=== PATIENT | male | born 1940 | race Caucasian/White ===

== ENCOUNTER → 2016-11-25 | Outpatient (CLI) | payer OTHER, BC ==
[~2016-11-25] MED LIST: ACET325T96 PO; CHOL100010 PO; LATA0.009 OPB; PSYL55.43 PO
[2016-12-01 10:17] LABS: ANTI-CENTROMERE AB <1.0 NEG AI (<1.0 NEG); ANTI-SS-A <1.0 NEG AI (<1.0 NEG); ANTI-SS-B <1.0 NEG AI (<1.0 NEG); DNA ds CRITHIDIA NEGATIVE (NEGATIVE); MICROSOMAL AB <1 IU/ML (<9); Sm Antibody <1.0 NEG AI (<1.0 NEG)
== END | disposition home or self-care (01) ==
LOC: C.LAB1850 15:02
PROVIDERS: ATTEND Internal Medicine Infectious Disease
DX: G62.9 Polyneuropathy, unspecified (principal)

== ENCOUNTER 2017-10-19 11:32 | Day surgery (SDC) | payer OTHER, BC ==
[2017-09-29 12:02] VITALS: BMI 25.0
[~2017-10-19] VITALS: Ht 185.4 cm; Wt 86.4 kg
[~2017-10-19 11:32] MED LIST changes: +ACET-1256 PO; -ACET325T96 PO; -CHOL100010 PO; +CIPROFLOXACIN / D5W 400 MG IV SCH; +CLC100X PO; +DOXY100C76 PO; +FLM4 PO; +IBUP-1459 PO; +LACTATED RINGER'S 1000ML 1,000 ML IV SCH; -LATA0.009 OPB; +PSYL48.59 PO; -PSYL55.43 PO; +TRAM-10 PO
[2017-10-19 12:13] VITALS: BP 146/67; PULSE 87; TEMP 36.6; O2SAT 97; BMI 25.0
[2017-10-19 12:23] VITALS: BP 146/67; TEMP 36.6; O2SAT 97; Ht 185.4 cm; Wt 86.4 kg
--- NOTE | 2017-10-19 12:25 | History & Physical Bridge Note ---
H&P Re-Evaluation Bridge Note: I have examined the patient, reviewed the History & Physical and in the interval since the performance of the History & Physical I have noted the following changes of clinical significance: No changes noted
--- NOTE | 2017-10-19 12:28 | Discharge Instructions ---
Discharge Instructions Date of Service Oct 19, 2017. Admission Reason for Admission: Nephrolithiasis Discharge Discharge Diagnosis / Problem: Hematuria, UTI, Hydronephrosis Discharge Goals Goal(s): Decrease discomfort, Improve function Activity Recommendations Activity Limitations: resume your previous activity Lifting Limitations: gradually increase as tolerated Exercise/Sports Limitations: gradually increase as tolerated . Instructions / Follow-Up Instructions / Follow-Up May have blood in urine. May have pelvic discomfort. Call if any fevers or chills. Current Hospital Diet Patient's current hospital diet: Discharge Diet Recommended Diet: Regular Diet Procedures Procedures Performed: Cystoscopy, bilateral retrograde pyelogram, left ureteroscopy, dilation, stent. Pending Studies Studies pending at discharge: no Medical Emergencies . Who to Call and When: Medical Emergencies: If at any time you feel your situation is an emergency, please call 911 immediately. . Non-Emergent Contact Non-Emergency issues call your: Primary Care Provider, Urologist Call Non-Emergent contact if: you have a fever, temperature is above 101, temperature is above 101.5, your pain is not controlled, your pain is worsening , your pain is unusual for you . . "Provider Documentation" section prepared by Babatunde Wood. .
[2017-10-19] MEDS ORDERED: NITR1CAP16 PO (12:35)
[2017-10-19] MEDS ORDERED: TRAM-10 PO (12:35)
[2017-10-19] MEDS ORDERED: PHEN-775 PO (12:35)
[2017-10-19] MEDS ORDERED: MIDAZOLAM HCL 1 MG/ML 2ML VIAL ONE (12:43)
[2017-10-19] MEDS ORDERED: FENTANYL CITRATE INJ 50 MCG/1 ML 2 ML VIAL ONE (12:44)
[2017-10-19] MEDS ORDERED: OXYCODONE/ACETAMINOPHEN 7.5-325 TAB PO PRN (12:45)
[2017-10-19] MEDS ORDERED: FENTANYL CITRATE INJ 50 MCG/1 ML 2 ML VIAL IV PRN (13:00)
[2017-10-19] MEDS ORDERED: ATROPINE SULFATE 0.1 MG/ML 5ML SYR IV PRN (13:00)
[2017-10-19] MEDS ORDERED: EpHEDrine SULFATE INJ 50 MG/ML AMP IV PRN (13:00)
[2017-10-19] MEDS ORDERED: ONDANSETRON INJ 2 MG/ML 2 ML VIAL IV PRN (13:00)
[2017-10-19] MEDS ORDERED: Cysto-Conray II 17.2% 250ML BOTTLE ONE (13:26)
[2017-10-19] MEDS ORDERED: BELLADONNA/OPIUM SUPP 60 MG SUPP PR ONE ×2 (13:50→13:57)
[2017-10-19] MEDS ORDERED: LIDOCAINE HCL 2% 2 ML VIAL (20MG/ML) ONE (14:09)
[2017-10-19] MEDS ORDERED: DEXAMETHASONE SOD INJ 4 MG/ML VIAL ONE (14:09)
[2017-10-19] MEDS ORDERED: PROPOFOL IV EMULSION 10 MG/ML 20 ML VIAL ONE ×2 (14:09→14:10)
[2017-10-19] MEDS ORDERED: ONDANSETRON INJ 2 MG/ML 2 ML VIAL ONE (14:09)
--- NOTE | 2017-10-19 14:18 | [facility] Operative Report ---
Operative Report Operative Date Oct 19, 2017. Pre-Operative Diagnosis Hematuria, Fever of Uknown orgin, Left Hydronephrosis Post-Operative Diagnosis Same, with ureteral stricture on left and bladder stone with narrow bladder neck Procedure(s) Performed Cystoscopy, bilateral retrograde pyelogram, left ureteroscopy, dilation, stent, extraction of foreign body bladder (stone). Surgeon Israel Estimated Blood Loss Minimal Findings Mild left hydronephrosis. Very narrow bladder neck with bladder stone Specimens Bladder Stone Drains 6 Fr Stent on Left Anesthesia Type MAC Complication(s) none Disposition Recovery Room / PACU Indications Dysuria, fever, and malaise of unknown origin. Discussed imaging and findings. Risks and benefits discussed. Description of Procedure Patient was consented and brought back to the operating room. Patient was placed under anesthesia in the supine position and moved to the dorsal lithotomy position. Patient was prepped and draped in the regular sterile fashion. A time out was completed. A 30degree Cystoscope was placed into the bladder and the entire bladder was examined. The UO's were identified. Patient had a small short prostatic urethra but had significant narrowing of bladder neck which would only just accommodate the scope. A stone was found in the base of the bladder with moderate trabeculation noted throughout. The ureters on the right and then the left were cannulized with a catheter and a retrograde pyelogram was completed. The right was clear without hydronephrosis or other filling defects or concerning findings. The left had a very mild hydronephrotic appearance. A wire was then placed on the left. With the wire in place, a second wire and a ureteral access sheath was placed. This dilated the ureter up to 14 icelandic. It was confirmed with fluoroscopy. A flexible ureteroscope was placed and taken to the renal pelvis. The entire pelvis and ureter were examined. No masses or lesions were discovered. The scope was slowly removed. A retrograde pyelogram was completed through the scope for stent placement. The wire was backloaded into the cystoscope and a 6 Fr Stent was placed under direct visualization and confirmed with fluoroscopy. With the stent in place, the bladder was emptied. The scope was removed. The patient was cleaned, aroused from anesthesia, and transferred to the pacu in stable condition having tolerated the procedure well with no complications. I was present and participated in all aspects of the procedure. The patient will be monitored in the PACU until transferred. I attest to the content of the Intraoperative Record and any orders documented therein. Any exceptions are noted below.
--- NOTE | 2017-10-19 14:42 | DIAGNOSTIC IMAGING REPORT ---
INTRAOPERATIVE RADIOGRAPHS CLINICAL HISTORY: Bilateral retrograde ureterograms and left ureteral stent placement. Fluoroscopy time: 105 seconds. FINDINGS: 8 spot fluoroscopic views of the renal collecting systems are obtained. A single view of the right renal collecting system shows no hydronephrosis. No hydronephrosis is identified on the left. The final 4 images show a left ureteral stent being deployed. IMPRESSION: Intraoperative images from bilateral retrograde ureterogram and left ureteral stent placement procedure. See operative report for detailed findings. Electronically signed by: Geo Wilde M.D. 10/19/2017 2:41 PM Dictated Date/Time: 10/19/2017 2:39 PM
[2017-10-19] MEDS ORDERED: EpHEDrine SULFATE INJ 50 MG/ML AMP ONE (14:43)
--- NOTE | 2017-10-19 15:01 | Anesthesiology Progress Note ---
Anesthesia Post Op Note Date & Time Oct 19, 2017 at 15:01 Vital Signs Pain Intensity: 0 Vital Signs Past 12 Hours Date Time Temp Pulse Resp B/P (MAP) Pulse Ox O2 Delivery O2 Flow Rate FiO2 10/19/17 14:45 65 17 124/71 100 Nasal Cannula 2 10/19/17 14:35 65 16 131/70 100 Nasal Cannula 2 10/19/17 14:28 36.0 73 20 130/71 100 Nasal Cannula 2 10/19/17 12:23 36.6 20 146/67 (93) 97 Room Air 10/19/17 12:13 36.6 87 20 146/67 (93) 97 Room Air Notes Mental Status: alert / awake / arousable, participated in evaluation Pt Amnestic to Procedure: Yes Nausea / Vomiting: adequately controlled Pain: adequately controlled Airway Patency, RR, SpO2: stable & adequate BP & HR: stable & adequate Hydration State: stable & adequate Anesthetic Complications: no major complications apparent
[2017-10-19 15:15] VITALS: BP 106/67; PULSE 69; TEMP 36.4; O2SAT 99
[2017-10-19 15:45] VITALS: BP 148/78; PULSE 76; O2SAT 99
[2017-10-19] MEDS ORDERED: PHENAZOPYRIDINE HCL 200 MG TAB PO ONE (16:06)
[2017-10-19] MEDS ORDERED: NURSING VERBAL MED ORDER ONE ×3 (16:15→16:45)
[2017-10-19] MEDS ORDERED: OXYBUTYNIN CHLORIDE 5 MG TAB PO ONE (16:30)
[2017-10-19 17:00] VITALS: BP 140/71; PULSE 81; TEMP 36.4; O2SAT 99
== END 2017-10-19 17:15 | disposition home or self-care (01) ==
LOC: C.ACU 11:32
PROVIDERS: ATTEND Urology
DX: N13.30 Unspecified hydronephrosis (principal); N39.0 Urinary tract infection, site not specified; R33.9 Retention of urine, unspecified; N45.1 Epididymitis; R30.0 Dysuria; K59.00 Constipation, unspecified; G89.4 Chronic pain syndrome; G25.0 Essential tremor; M54.12 Radiculopathy, cervical region; M19.90 Unspecified osteoarthritis, unspecified site; G62.9 Polyneuropathy, unspecified; E55.9 Vitamin D deficiency, unspecified; Z87.891 Personal history of nicotine dependence; Z88.5 Allergy status to narcotic agent; Z88.0 Allergy status to penicillin